=== PATIENT | female | born 1960 | race Caucasian/White ===

== ENCOUNTER → 2016-09-11 | Outpatient (CLI) | payer BC ==
[2016-09-11 14:20] LABS: CREATININE SERUM 1.3 mg/dL (0.6-1.4); GLOM FILT RATE Estimated 44.7 mL/min (>60)
== END | disposition home or self-care (01) ==
LOC: CLAB 13:02
PROVIDERS: Urology
DX: N26.1 Atrophy of kidney (terminal) (principal)
CPT/HCPCS: 36415; 82565; 84520